=== PATIENT | female | born 1980 | race Caucasian/White ===

== ENCOUNTER 2022-10-02 21:18 | Emergency (ER) | payer OTHER ==
[~2022-10-02] VITALS: Ht 165.1 cm; Wt 81.6 kg
--- NOTE | 2022-10-02 23:42 | NUR ---
After being triaged, patient was placed back in the waiting room due to no beds available in the ER.
--- NOTE | 2022-10-03 00:31 | NUR ---
Placed patient in room 5a at this time
--- NOTE | 2022-10-03 00:45 | NUR ---
at bedside. MSE in progress.
[2022-10-03] MEDS ORDERED: ONDANSETRON ODT 4 MG TAB.RAPDIS ONE (00:53)
[2022-10-03] MEDS ORDERED: KETOROLAC TROMETHAMINE 30 MG INJ ONE (00:53)
[2022-10-03] MEDS ORDERED: KETOROLAC TROMETHAMINE 30 MG INJ IM ONE (01:00)
[2022-10-03] MEDS ORDERED: ONDANSETRON ODT 4 MG TAB.RAPDIS SL ONE (01:00)
[2022-10-03] MEDS ORDERED: OXYCODONE/APAP 5-325 MG TABLET PO ONE (01:00)
--- NOTE | 2022-10-03 01:11 | NUR ---
Covid and Flu swabs sent to lab.
[2022-10-03] MEDS ORDERED: OXYC-128 PO (01:29)
[2022-10-03] MEDS ORDERED: ONDA4TAB5 PO (01:29)
[2022-10-03] MEDS ORDERED: OXYCODONE/APAP 5-325 MG TABLET ONE (01:44)
--- NOTE | 2022-10-03 02:52 | NUR ---
Patient discharged to home in stable condition. A/O X4. NAD noted. Ambulatory with a steady gait. All belongings with patient. Written and verbal after care instructions given. Patient verbalizes understanding of instructions. Stressed follow up or return to ER for worsening s/s.
[2022-10-03 02:53] VITALS: BP 118/75
== END 2022-10-03 02:54 | disposition home or self-care (01) ==
LOC: ER 21:18
DX: M79.10 Myalgia, unspecified site (principal); M25.50 Pain in unspecified joint; R51.9 Headache, unspecified; R11.2 Nausea with vomiting, unspecified; Z20.822 Contact with and (suspected) exposure to COVID-19; F17.210 Nicotine dependence, cigarettes, uncomplicated
CPT/HCPCS: 99283; 87426; 87400; 96372; J1885; A4663; Q0162